=== PATIENT | male | born 1980 | race Hispanic/Latino ===

== ENCOUNTER → 2025-03-15 | Outpatient (CLI) | payer OTHER ==
--- NOTE | 2025-03-16 12:18 | HMCIMG ---
EXAM: CT Heart Saver Calcium Scoring (Agatston Method). TECHNIQUE: Non-contrast CT of the heart performed for coronary calcium scoring. Agatston equivalent method, threshold 130 HU. RADIATION DOSE: CTDIvol (Body): 8.01 mGy DLP (Body): 121.70 mGy???cm WORKSHEET DETAILS: LM: Lesions 0, Volume 0.0 mm???, Score 0.0 LAD: Lesions 0, Volume 0.0 mm???, Score 0.0 LCX: Lesions 0, Volume 0.0 mm???, Score 0.0 RCA: Lesions 0, Volume 0.0 mm???, Score 0.0 Ca (Total): Lesions 0, Volume 0.0 mm???, Score 0.0 U1: Lesions 0, Volume 0.0 mm???, Score 0.0 U2: Lesions 0, Volume 0.0 mm???, Score 0.0 Total Agatston Score: 0 (Dataset does not contain a mass calibration factor; equiv. mass not calculated.) FINDINGS: No identifiable coronary artery calcification is seen. Coronary Age: < 35 years. Percentile: 0th percentile for age and sex. IMPRESSION: Coronary calcium score: 0 (Agatston). No evidence of coronary artery calcification. /[place]
== END | disposition home or self-care (01) ==
LOC: RAH 14:38
PROVIDERS: ATTEND Nurse Practitioner Adult Health
DX: Z13.6 Encounter for screening for cardiovascular disorders (principal)
CPT/HCPCS: 75571